=== PATIENT | male | born 1940 | race Caucasian/White ===

== ENCOUNTER 2016-12-29 08:34 | Day surgery (SDC) | payer MEDICARE, OTHER ==
[~2016-12-29 08:34] MED LIST: Dexamethasone 4 MG/ML 5 ML MDV ONE; Lactated Ringers 1,000 ML IV SCH; Midazolam 1 MG/ML 2 ML SDV ONE; Ondansetron 4 MG/2 ML SDV ONE; Propofol 200 MG/20 ML SDV ONE; Sodium Chloride 0.9% 2.5 ML Syringe FLUSH PRN; ceFAZolin 1 GM in Premix Bag 1 BAG IV ONE; ceFAZolin 2 GM in Premix Bag 1 BAG IV ONE; fentaNYL 100 MCG/2 ML SDV ONE
--- NOTE | 2016-12-29 09:05 | PCM.PREANE ---
Preanesthetic Assessment - Anesthesia/Transfusion/Family Hx Anesthesia History: Prior Anesthesia Without Reaction Family History of Anesthesia Reaction: No Transfusion History: No Prior Transfusion(s) Intubation History: Unknown - Review of Systems General: No Symptoms Pulmonary: No Symptoms Cardiovascular: No Symptoms Gastrointestinal: No Symptoms Neurological: No Symptoms Other: Reports: None - Physical Assessment O2 Sat by Pulse Oximetry: 94 Respiratory Rate: 16 Vital Signs: Last Vital Signs Temp 36 C 12/29/16 08:54 Pulse 88 12/29/16 08:54 Resp 16 12/29/16 08:54 BP 149/77 H 12/29/16 08:54 Pulse Ox 94 L 12/29/16 08:54 Height: 1.83 m Weight: 92.533 kg ASA Class: 3 Mental Status: Alert & Oriented x3 Airway Class: Mallampati = 2 Dentition: Reports: Dentures (upper), Missing Tooth/Teeth (only 2 teeth left in lower jaw) Thyro-Mental Finger Breadths: 3 Mouth Opening Finger Breadths: 3 ROM/Head Extension: Limited/Partial Lungs: Clear to Auscultation, Normal Respiratory Effort Cardiovascular: Regular Rate, Regular Rhythm (occasional skipped heart beats) - Allergies Allergies/Adverse Reactions: Allergies Allergy/AdvReac Type Severity Reaction Status Date / Time No Known Allergies Allergy Verified 12/25/16 12:30 - Blood Blood Available: No - Anesthesia Plan Pre-Op Medication Ordered: None - Acknowledgements Anesthesia Type Planned: General Anesthesia Pt an Appropriate Candidate for the Planned Anesthesia: Yes Alternatives and Risks of Anesthesia Discussed w Pt/Guardian: Yes Pt/Guardian Understands and Agrees with Anesthesia Plan: Yes PreAnesthesia Questionnaire HEENT History: Reports: Cataract, Hard of Hearing Other HEENT History: wears glasses, has upper denture Cardiovascular History: Reports: High Cholesterol Other Cardiovascular History: denies HTN (takes Verapamil) Genitourinary History: Reports: BPH, UTI, Recurrent Endocrine/Metabolic History: Reports: Diabetes, Type II - Past Surgical History HEENT Surgical History: Reports: Cataract Surgery Male Surgical History: Reports: None - SUBSTANCE USE Smoking Status *Q: Never Smoker Recreational Drug Use History: No - HOME MEDS Home Medications: Home Meds Aspirin 81 mg PO DAILY 12/25/16 [History] Furosemide 40 mg PO DAILY 12/25/16 [History] Glimepiride 4 mg PO QAM 12/25/16 [History] Metoclopramide HCl 10 mg PO DAILY 12/25/16 [History] Nateglinide [Starlix] 120 mg PO DAILY 12/25/16 [History] SitaGLIPtin [Januvia] 100 mg PO DAILY 12/25/16 [History] Tamsulosin [Flomax] 0.4 mg PO BEDTIME 12/25/16 [History] Verapamil HCl [Calan Sr] 240 mg PO BEDTIME 12/25/16 [History] atorvaSTATin [Lipitor] 20 mg PO BEDTIME 12/25/16 [History] metFORMIN HCl [Metformin HCl] 500 mg PO BIDMEALS 12/25/16 [History] - CURRENT (IN HOUSE) MEDS Current Meds: Current Medications Lactated Ringer's (Ringers, Lactated) 1,000 mls @ 100 mls/hr IV ASDIRECTED FRANTZ Last Admin: 12/29/16 08:59 Dose: 100 mls/hr Sodium Chloride (Saline Flush) 2.5 ml FLUSH ASDIRECTED PRN PRN Reason: Keep Vein Open Discontinued Medications Dexamethasone (Dexamethasone) Confirm Administered Dose 20 mg .ROUTE .STK-MED ONE Stop: 12/29/16 07:26 Fentanyl (Sublimaze) Confirm Administered Dose 100 mcg .ROUTE .STK-MED ONE Stop: 12/29/16 07:25 Cefazolin Sodium/Dextrose 2 gm (/ Premix) 50 mls @ 100 mls/hr IV ONETIME ONE Stop: 12/29/16 00:30 Lidocaine HCl (Xylocaine-Mpf 1%) Confirm Administered Dose 5 ml .ROUTE .STK-MED ONE Stop: 12/29/16 07:25 Midazolam HCl (Versed 1 Mg/Ml) Confirm Administered Dose 2 mg .ROUTE .STK-MED ONE Stop: 12/29/16 07:25 Ondansetron HCl (Zofran) Confirm Administered Dose 4 mg .ROUTE .STK-MED ONE Stop: 12/29/16 07:26 Propofol (Diprivan 20 Ml) Confirm Administered Dose 200 mg .ROUTE .STK-MED ONE Stop: 12/29/16 07:25
[2016-12-29] MEDS ORDERED: Bupivacaine 0.5% 10 ML SDV ONE (10:12)
[2016-12-29] MEDS ORDERED: Labetalol 100 MG/20 ML MDV IVPUSH PRN (12:34)
[2016-12-29] MEDS ORDERED: Labetalol 100 MG/20 ML MDV ONE (12:39)
--- NOTE | 2016-12-29 13:10 | OR ---
SURGEON: Columba Garcia M.D. DATE OF PROCEDURE: 12/29/2016 PREOPERATIVE DIAGNOSIS: UTI, abnormal CT scan of the bladder. POSTOPERATIVE DIAGNOSIS: UTI, abnormal CT scan of the bladder. FINDINGS: Trabeculated bladder and extensive urethral stricture along with his phimosis. OPERATION: Dorsal slit, urethral dilatation, and cystoscopy. DESCRIPTION OF PROCEDURE: The patient was placed in dorsal lithotomy position, given adequate sedation. A 1% lidocaine was infiltrated in the dorsal foreskin, clamp was then applied, and a dorsal foreskin was cut in the midline in to a distance for approximately 2.5 cm. The skin edges were then closed with a running suture going from one side all the way to the next. Attempted urethroscopy initially failed because of urethral stricture, so the urethra was dilated all the way up to 20-Amharic. A 17-Amharic scope was then introduced in the urethra, which showed a long urethral stricture extending the entire length of the penile urethra. Bulbous urethra was normal. Prostatic urethra was essentially unremarkable and the bladder showed 4+ trabeculations. There were no tumors or stones seen in the bladder. With that done, the procedure was terminated and the patient was sent back to the recovery room in good condition. JENNIFER / COLT /[id number]
[2016-12-29 14:49] VITALS: BP 128/66
== END 2016-12-29 16:11 | disposition home or self-care (01) ==
LOC: MW.SDS 08:34
PROVIDERS: ATTEND Urology
DX: N35.9 Urethral stricture, unspecified (principal); N47.1 Phimosis; Z79.82 Long term (current) use of aspirin; Z79.84 Long term (current) use of oral hypoglycemic drugs; Z79.899 Other long term (current) drug therapy; Z98.890 Other specified postprocedural states; Z78.9 Other specified health status
CPT/HCPCS: 36415; 52281; 80048; 82962; 93005; J1100; J2250; J2405; J3010; J7120; 00910; J2704